=== PATIENT | female | born 1955 | race Caucasian/White ===

== ENCOUNTER → 2024-05-03 11:39 | Outpatient (BNVA) | payer MEDICARE, SELFPAY | PROVIDERS: Family Provider Nurse Practitioner; PCP Family Medicine; Visit Provider Family Medicine | DX: R30.0 Dysuria (principal) | CPT/HCPCS: 87086 ==

== ENCOUNTER 2024-09-03 10:16 | Outpatient (CLI) | payer MEDICARE, SELFPAY ==
--- NOTE | 2024-09-03 10:19 | XRR_ITS ---
PROCEDURE INFORMATION: Exam: XR Thoracic Spine Exam date and time: 09/03/2024 10:27 AM Age: 69 years old Clinical indication: Pain in thoracic spine; Prior surgery; Surgery date: 6+ months; Surgery type: Kypho; Neck & upper back pain that radiates through the jaw x 15 years. Pain has increased in the last few years. ; Additional info: Thoracic back pain TECHNIQUE: Imaging protocol: Radiologic exam of the thoracic spine. Views: 3 views. COMPARISON: CR XR cervical spine 3V* [id number] 09/03/2024 10:27 AM FINDINGS: Bones/joints: Mild S shaped scoliosis of the thoracic spine. Thoracic curvature in lateral projection is unremarkable. There are no compression fractures or spondylolisthesis. Pedicles are intact. Mild degenerative changes midthoracic spine with mild disc space narrowing and endplate sclerosis. Soft tissues: Unremarkable. XR/XR thoracic spine 3V* [id number] IMPRESSION: Mild degenerative changes midthoracic spine. No acute bony abnormalities.
--- NOTE | 2024-09-03 10:19 | XRR_ITS ---
PROCEDURE INFORMATION: Exam: XR Cervical Spine Exam date and time: 09/03/2024 10:27 AM Age: 69 years old Clinical indication: Neck pain; Neck & upper back pain that radiates through the jaw x 15 years. Pain has increased in the last few years. ; Additional info: Chronic neck pain TECHNIQUE: Imaging protocol: Radiologic exam of the cervical spine. Views: 2 or 3 views. COMPARISON: CR XR thoracic spine 3V* [id number] 09/03/2024 10:27 AM FINDINGS: Bones/joints: Cervical curvature alignment is unremarkable. Mild-moderate degenerative changes C5-C6 and C6-C7 with disc space narrowing, endplate sclerosis and mild osteophytic lipping. Maintained disc heights are fairly well-maintained. No evidence of fracture or spondylolisthesis. Soft tissues: Unremarkable. XR/XR cervical spine 3V* [id number] IMPRESSION: Mild-moderate degenerative changes lower cervical spine. No acute bony abnormalities.
== END 2024-09-03 10:17 | disposition home or self-care (01) ==
LOC: RAD 10:18
PROVIDERS: PCP Family Medicine; Visit Provider Family Medicine
DX: M54.2 Cervicalgia (principal); M54.6 Pain in thoracic spine; G89.29 Other chronic pain; E55.9 Vitamin D deficiency, unspecified; E78.00 Pure hypercholesterolemia, unspecified; F33.1 Major depressive disorder, recurrent, moderate; G43.009 Migraine without aura, not intractable, without status migrainosus
CPT/HCPCS: 72040; 72072; 80053; 80061; 82306; 84443; 85025

== ENCOUNTER 2024-09-06 11:34 | Outpatient (CLI) | payer MEDICARE, SELFPAY ==
--- NOTE | 2024-09-06 11:20 | MM_ITS ---
WS: [id number] BILATERAL 3D TOMOSYNTHESIS DIGITAL SCREENING MAMMOGRAPHY WITH CAD CLINICAL INFORMATION: screening HISTORY: Screening mammogram. No current complaints. COMPARISON: Outside study 2020 TECHNIQUE: Bilateral CC and MLO views. FINDINGS: Scattered fibroglandular densities bilaterally. No suspicious focal mass, asymmetry, calcifications, or architectural distortion. No evidence of malignancy. Benign calcification LEFT breast. Mild vascular calcification. MM/MM scr tomosynthesis [id number] IMPRESSION: DENSITY: There are scattered areas of fibroglandular density. BI-RADS: 2 - Benign. FOLLOW UP: 1 Year Follow-up Recommend return to annual screening mammography.
== END 2024-09-06 11:35 | disposition home or self-care (01) ==
PROVIDERS: PCP Family Medicine; Visit Provider Family Medicine
DX: Z12.31 Encounter for screening mammogram for malignant neoplasm of breast (principal); R92.323 Mammographic fibroglandular density, bilateral breasts; R92.1 Mammographic calcification found on diagnostic imaging of breast
CPT/HCPCS: 77063; 77067

== ENCOUNTER 2025-01-23 15:02 | Outpatient (CLI) | payer MEDICARE, SELFPAY ==
--- NOTE | 2025-01-23 15:30 | XR_ITS ---
WS: [id number] DEXA (DUAL ENERGY X-RAY ABSORPTIOMETRY) Bone mineral density was performed using a [employer] machine. HISTORY: osteoporosis COMPARISON: None available. Left forearm BMD: 0.622 g/cm2. T score: -2.9 Z score: -1.2 Total hip BMD: Left: 0.734 g/cm2. T score: -2.2 Z score: -1.4 Right: 0.723 g/cm2. T score: -2.3 Z score: -1.5 10 year probability of a major osteoporotic fracture is 15.7%. XR/XR DEXA axial skeleton* [id number] IMPRESSION: OSTEOPOROSIS based upon the WHO classification for females.
== END 2025-01-23 15:03 | disposition home or self-care (01) ==
LOC: RAD 15:03
PROVIDERS: PCP Family Medicine; Visit Provider Family Medicine
DX: Z13.820 Encounter for screening for osteoporosis (principal); M81.0 Age-related osteoporosis without current pathological fracture
CPT/HCPCS: 77080